=== PATIENT | female | born 1980 | race Caucasian/White ===

== ENCOUNTER 2018-04-13 13:50 | Emergency (ER) | payer OTHER ==
[~2018-04-13] VITALS: Ht 154.9 cm; Wt 59.1 kg
[~2018-04-13 13:50] MED LIST: [UNRECOGNIZED DRUG - REMARK]
[2018-04-13 14:06] VITALS: BP 135/90
[2018-04-13] MEDS: KETOROLAC 60 MG/2 ML VIAL IM ONE (14:46)
[2018-04-13 15:04] VITALS: BP 119/85
== END 2018-04-13 15:04 | disposition home or self-care (01) ==
LOC: MED 13:50
DX: S46.812A Strain of other muscles, fascia and tendons at shoulder and upper arm level, left arm, initial encounter (principal); Z88.1 Allergy status to other antibiotic agents; X58.XXXA Exposure to other specified factors, initial encounter; Y93.89 Activity, other specified; Y92.89 Other specified places as the place of occurrence of the external cause; Y99.8 Other external cause status
CPT/HCPCS: 96372; 99283; J1885